=== PATIENT | female | born 1990 | race Caucasian/White ===

== ENCOUNTER → 2019-02-03 | Outpatient (CLI) | payer MEDICAID, SELFPAY ==
[2016-10-06 22:24] VITALS: BMI 27.1
[2019-02-03 17:21] LABS: Internal QC Validated? YES +Cl - CLEAR BKGD; Pregnancy, Serum, hCG Quali. NEGATIVE Negative
== END | disposition home or self-care (01) ==
LOC: WOBLAB 14:58
PROVIDERS: Visit Provider Obstetrics & Gynecology
DX: N92.5 Other specified irregular menstruation (principal)
CPT/HCPCS: 36415; 84703

== ENCOUNTER 2019-03-16 18:45 | Emergency (ER) | payer MEDICAID, SELFPAY ==
[2019-03-16 11:45] VITALS: BMI 27.1
[2019-03-16 18:46] VITALS: BP 127/78; PULSE 97; RESP 16; TEMP 37.1; O2SAT 100; BMI 22.1
[2019-03-16 19:15] VITALS: PULSE 97; TEMP 37.1
--- NOTE | 2019-03-16 19:31 | ED.VISSUMM ---
- ER Visit Summary Date of Service: 03/16/19 Chief Complaint: [Redness and swelling to the left forearm] History of Present Illness: The patient is a 28 F [the emergency department with redness and swelling to the left forearm that started 3 days ago. Patient was gardening the day before but she is not sure if she may have possibly been stung by something but following day she noticed a pimple-like lesion on her left forearm which she popped and did not think anything of it. Patient states subsequently developed increased redness and swelling and today was seen at urgent care and the physician there attempted to squeeze the lesion and ordered clindamycin for patient. Patient thinks she is about 5 weeks . Patient has noticed increased discomfort and swelling since this morning and comes in for evaluation. Patient has not started her clindamycin as of yet has not picked up her prescription. She denies any fevers.] Physical Examination: [Left forearm-patient has a soft tissue swelling measuring approximately 2 cm in diameter with a central excoriated area. Faint cellulitic changes noted surrounding it. Neurovascular intact distally.] Test Results: None indicated] Emergency Department Course and Treatment: [Incision and drainage-patient agreed to allow for attempted incision and drainage of suspected abscess. Area sterilely draped and prepped. Wound cleansed with alcohol initially and anesthetized with 1% lidocaine total of 4 cc. Using 11 blade a 1 cm incision was made into the suspected abscess and only small amount of purulent debris was expressed with blood. I used curved hemostats undermined the subcutaneous tissues. Cavity was irrigated with saline. Area of erythema was outlined with marker. She was given 1 dose of clindamycin in the emergency department.] Treatment Plan: [Be treated with clindamycin.] Disposition: [Discharged to home in stable condition. Patient advised to return if increasing pain, redness, swelling, or conditions worsen anyway.] Impression: Soft tissue abscess left forearm with incision and drainage [] This note was generated with [employer] dictation software. It may contain incorrect words, spelling, and punctuation that were not noted in review of the chart prior to signing ED Disposition - Plan for ED Patient: Referrals: Raquel Lovell MD [Primary Care Provider] -
--- NOTE | 2019-03-16 19:34 | ED.DEP ---
ED Disposition - Plan for ED Patient: Instructions: ABSCESS, Incision and Drainage Referrals: Raquel Lovell MD [Primary Care Provider] - 3-5 Days
[2019-03-16] MEDS: Clindamycin HCl 150 MG Capsule 300 MG PO (19:58)
[2019-03-16 20:01] VITALS: PULSE 81; RESP 14; O2SAT 99
--- NOTE | 2019-03-16 20:02 | ED.RN ---
THIS NURSE REVIEWED D/C INSTRUCTIONS WITH PT. PT VERBALIZED UNDERSTANDING OF INSTRUCTIONS. DRESSING APPLIED. PT DENIES FURTHER NEEDS OR QUESTIONS AT THIS TIME. PT AMBULATES FROM ROOM ON OWN WITHOUT ASSISTANCE FROM STAFF
== END 2019-03-16 20:03 | disposition home or self-care (01) ==
PROVIDERS: Emergency Provider Emergency Medicine; Family Provider Family Medicine; PCP Family Medicine
DX: L02.414 Cutaneous abscess of left upper limb (principal)
CPT/HCPCS: 10060; 99283

== ENCOUNTER → 2019-03-24 13:39 | Outpatient (CLI) | payer MEDICAID, SELFPAY ==
[2019-03-16 18:46] VITALS: BMI 22.1
[2019-03-24 18:24] LABS: Chlamydia Trachomatis by PCR Negative (Negative); Neisserai gonorrhoeae by PCR Negative (Negative); Probe Check PASS; Sample Adequacy Control PASS; Specimen Processing Control PASS
== END ==
PROVIDERS: Visit Provider Obstetrics & Gynecology
DX: Z11.3 Encounter for screening for infections with a predominantly sexual mode of transmission (principal)
CPT/HCPCS: 87491; 87591

== ENCOUNTER → 2019-04-18 11:55 | Outpatient (CLI) | payer MEDICAID, SELFPAY ==
[2019-04-18 15:56] LABS: Absolute Lymphocyte Count 1.97 X10^3/uL (0.83-4.51); Absolute Neutrophil Count 5.3 X10^3/uL (2.0-7.7); Basophil# 0.03 X10^3/uL; Basophil% 0.4 % (0-1); Eosinophil# 0.11 X10^3/uL; Eosinophils% 1.4 % (0-5); Hematocrit 38.4 % (37-47); Hemoglobin 12.2 g/dL (12.0-15.0); Lymphocyte # 1.97 X10^3/ul (4.0); Mean Corp Hgb Conc 31.8 g/dL (32-36); Mean Corpuscular Hgb 26.5 pg (27.0-32.0); Mean Corpuscular Volume 83.5 fL (81-99); Monocyte# 0.47 X10^3/uL; NRBC Flagged by Analyzer 0 % (0-5); Neutrophil # 5.29 X10^3/uL (2.7-7.7); Neutrophil % 66.9 % (47-70); Platelet Count 289 K/mm3 (150-450); RBC Distribution Width SD 51.9 fl (35.1-43.9); White Blood Count 7.9 K/mm3 (4.4-11.0)
[2019-04-18 16:06] LABS: Color, Urine Yellow (Yellow); Glucose, Dipstick Normal (Normal); Ketone-Dipstick 5 mg/dl (Negative); Leukocyte Esterase-Dipstick 100 /ul (Negative); Nitrite-Dipstick Negative (Negative); Occult Blood-Urine Negative /ul (Negative); Protein-Dipstick 15 mg/dl (Negative); Specific Gravity, Urine 1.025 (1.002-1.030); Urine Bilirubin Dipstick Negative (Negative); Urine Clarity Clear (Clear); Urine Urobilinogen Normal (Normal)
[2019-04-18 16:17] LABS: Thyroid Stim Hormone (TSH) 1.02 uIU/mL (0.358-3.74)
[2019-04-18 16:18] LABS: Amphetamine Urine VISTA NEGATIVE (<1000 ng/mL); Barbiturate Urine VISTA NEGATIVE (< 200 ng/mL); Benzodiazepine Urine VISTA NEGATIVE (< 200 ng/mL); Cocaine Urine VISTA NEGATIVE (< 300 ng/mL); Ecstacy Urine VISTA NEGATIVE (< 500 ng/mL); Methadone Urine VISTA NEGATIVE (< 300 ng/mL); PCP Urine VISTA NEGATIVE (< 25 ng/mL); THC Urine VISTA NEGATIVE (< 50 ng/mL); Vista UDS pH Range 6
[2019-04-21 15:18] LABS: HIV - WCH Non-Reactive (Nonreactive); Hepatitis B Surface Antigen Non-Reactive (Nonreactive); Hepatitis C Antibody Non-Reactive (Nonreactive); Rubella IgG 37.9 IU/mL; Vitamin D,25 Hydroxy 22.8 ng/mL (29.95-100.01)
[2019-04-24 02:58] LABS: Prenatal RPR NONREACTIVE (NONREACTIVE)
== END ==
PROVIDERS: Visit Provider Obstetrics & Gynecology
DX: Z34.81 Encounter for supervision of other normal pregnancy, first trimester (principal)
CPT/HCPCS: 36415; 80307; 81002; 82306; 84443; 85025; 86703; 86762; 86803; 87340

== ENCOUNTER → 2019-08-15 11:21 | Outpatient (CLI) | payer MEDICAID, SELFPAY ==
[2019-08-15 16:09] LABS: Hematocrit 28.5 % (37-47); Hemoglobin 8.5 g/dL (12.0-15.0); Mean Corp Hgb Conc 29.8 g/dL (32-36); Mean Corpuscular Hgb 24.4 pg (27.0-32.0); Mean Corpuscular Volume 81.9 fL (81-99); Mean Platelet Vol. 11.7 fl (6.2-12.0); Platelet Count 253 K/mm3 (150-450); RBC Distribution Width CV 13.7 % (11.6-14.6); RBC Distribution Width SD 40.8 fl (35.1-43.9); Red Blood Count 3.48 M/mm3 (4.2-5.4); White Blood Count 9.5 K/mm3 (4.4-11.0)
[2019-08-15 16:27] LABS: Glucose Challenge Gest 1H 50g 106 mg/dL (70-140)
[2019-08-15 16:59] LABS: Vitamin D,25 Hydroxy 32.5 ng/mL (29.95-100.01)
== END ==
PROVIDERS: Visit Provider Obstetrics & Gynecology
DX: Z34.83 Encounter for supervision of other normal pregnancy, third trimester (principal); E55.9 Vitamin D deficiency, unspecified
CPT/HCPCS: 36415; 82306; 82950; 85027

== ENCOUNTER → 2019-09-19 10:35 | Outpatient (CLI) | payer MEDICAID, SELFPAY ==
[2019-09-19 13:42] LABS: Hematocrit 35.4 % (37-47); Hemoglobin 10.9 g/dL (12.0-15.0); Mean Corp Hgb Conc 30.8 g/dL (32-36); Mean Corpuscular Hgb 26.4 pg (27.0-32.0); Mean Corpuscular Volume 85.7 fL (81-99); Mean Platelet Vol. 10.5 fl (6.2-12.0); POSITIVE MORPHOLOGY YES; Platelet Count 204 K/mm3 (150-450); RBC Distribution Width CV 21.2 % (11.6-14.6); RBC Distribution Width SD 64.2 fl (35.1-43.9); Red Blood Count 4.13 M/mm3 (4.2-5.4); White Blood Count 9.3 K/mm3 (4.4-11.0)
[2019-09-19 13:50] LABS: Scan Indicated on CBC? Y/N YES- FLAGS NOTED
== END ==
PROVIDERS: Visit Provider Obstetrics & Gynecology
DX: O99.013 Anemia complicating pregnancy, third trimester (principal); D50.9 Iron deficiency anemia, unspecified; Z3A.00 Weeks of gestation of pregnancy not specified
CPT/HCPCS: 36415; 85027

== ENCOUNTER → 2019-10-17 | Outpatient (CLI) | payer MEDICAID, SELFPAY | END | disposition home or self-care (01) | LOC: LABSPEC 14:42 | PROVIDERS: Referring Provider Obstetrics & Gynecology; Visit Provider Obstetrics & Gynecology | DX: Z36.85 Encounter for antenatal screening for Streptococcus B (principal) | CPT/HCPCS: 87081 ==

== ENCOUNTER → 2019-10-23 | Outpatient (CLI) | payer MEDICAID, SELFPAY ==
[2019-10-23 12:09] LABS: ROM Internal Control Test YES-OK TO RESULT pt. (Internal QC); ROM Patient Test Negative (Negative)
== END | disposition home or self-care (01) ==
PROVIDERS: Obstetrics & Gynecology; Visit Provider Obstetrics & Gynecology
DX: Z34.83 Encounter for supervision of other normal pregnancy, third trimester (principal)
CPT/HCPCS: 84112

== ENCOUNTER 2019-11-13 18:50 | Inpatient (IN) | payer MEDICAID, SELFPAY ==
[2019-11-13 19:14] VITALS: PULSE 82; O2SAT 96
[2019-11-13 19:15] VITALS: BP 118/72; PULSE 84; TEMP 37; O2SAT 97
[2019-11-13] MEDS: Lactated Ringers 1,000 ML 50 ML IV (19:45)
[2019-11-13 19:46] VITALS: BMI 27.6
[2019-11-13] MEDS: 0.9% Saline Lock 10 ML Syringe IV (20:08)
[2019-11-13 20:13] LABS: Absolute Lymphocyte Count 2.62 X10^3/uL (0.83-4.51); Absolute Neutrophil Count 8.3 X10^3/uL (2.0-7.7); Basophil# 0.02 X10^3/uL; Basophil% 0.2 % (0-1); Eosinophil# 0.14 X10^3/uL; Eosinophils% 1.2 % (0-5); Hematocrit 36.6 % (37-47); Hemoglobin 11.9 g/dL (12.0-15.0); Lymphocyte # 2.62 X10^3/ul (4.0); Lymphocyte % 21.7 % (19-41); Mean Corp Hgb Conc 32.5 g/dL (32-36); Mean Corpuscular Hgb 28.6 pg (27.0-32.0); Mean Platelet Vol. 10.6 fl (6.2-12.0); Monocyte# 0.94 X10^3/uL; Monocyte% 7.8 % (0-10); NRBC Flagged by Analyzer 0 % (0-5); Neutrophil # 8.34 X10^3/uL (2.7-7.7); Neutrophil % 68.8 % (47-70); Platelet Count 183 K/mm3 (150-450); RBC Distribution Width CV 17.7 % (11.6-14.6); RBC Distribution Width SD 57.4 fl (35.1-43.9); Red Blood Count 4.16 M/mm3 (4.2-5.4); White Blood Count 12.1 K/mm3 (4.4-11.0)
[2019-11-13] MEDS: miSOPROStol 25 MCG TABLET VAGINAL (20:25)
--- NOTE | 2019-11-13 20:39 | PCM.HPOB.BLA ---
- Problem List (1) 40 weeks gestation of Status: Acute History and Physical Date of Admission: 11/13/19 ACOG ANTEPARTUM RECORD - HISTORY AND PHYSICAL (11/13/2019) Name: JAMILA LIGHT OB Physician: MENDEL Scobey's Physician: DR. FABIAN MCMILLAN ...................................................................... : 1990 Age: 29 Address: [address] [place] [address] Phone: [phone] Insurance Carrier: [facility] [id number] Emergency Contact: STELLA LIGHT/MOTHER [phone] ...................................................................... Final BABS: 11/07/19 By Ultrasound: 9 weeks 2 days PARITY: (G-Total Pregnancies P-Fullterm,Premature,Induced AB,Spont AB, Ectopics, Multiple,Living) BABS CONFIRMATION: By LMP: 01/31/19 Initial Exam: 11/07/19 By First Ultrasound Exam: 11/07/19 Final BABS: 11/07/19 OB PROBLEM LIST: Celiac disease Declines AFP and CF testing EPDS = 0 Father is of [place] - no hx of a-thalassemia Pt's mother's family is Kinyarwanda, no hx of b-thalassemia ALLERGIES: Gluten foods Gi upset - celiac's disease No Known Drug Allergies MEDICATIONS: ferrous sulfate 325 mg (65 mg iron) tablet 1 tab po tid 28 mg-800 mcg tablet 1 PO QD Supplement (s) [No Strength] Vitamin D3 4,000 unit capsule 1 PO QD SOCIAL HISTORY: Smoking - used to smoke but quit and quit December 2015 Alcohol Use - denies drinking Diet - watch gluten Lifestyle - moderate stress lifestyle and single Exercise - active Employer - [employer] Job Description - [place] Illicit Drug Use - denies use of street drugs Sexual Activity - single sexual partner and multiple in past Residence - with [place] Place of - [place], [place] Hours Worked - 30 hrs/week Spouse-Sig Other Name - Stan Ender Spouse-Sig Other Occupation - unemp - grad school - [employer] for pharmacy Spouse-Sig Other Phone No - [phone] cell Children Name(s) - Colby Pereira 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 + + 126/62 0 142 - - 13 Sep SHM 2 32 V + + 100/70 0 136 tr - 21 Aug 30 JMW 3 30 + + 124/64 sl 134 - - 07 Sep 05 SHM 2 28 ? + ++ 100/64 0 131 ne ne Jul 31 SHM 4 23 + + 100/60 0 128 - - 06 Jun 26 SHM 4 19 + 110/62 0 124 tr - 08 May 23 SHM 4 on O 110/70 0 121 - - 11 Apr 18 SHM 4 + US 94/62 0 117 tr - ANTEPARTUM NOTE(S): Nov 07 2019: considering induction Oct 29 2019: doing well, reviewed FM, SROM, and labor Oct 22 2020: Oct 16 2020: Sep 18 2020: some soreness noted Aug 29 2019: Feeling Well, FM Noted per KK Regimen Aug 15 2020: glucola drawn today Jul 15 2020: see note Jun 13 2019: Comp u/s today, had Influenza vaccine May 16 2019: feeling well. Rash on chest and back. Apr 18 2019: feeling well. COMPREHENSIVE ANTEPARTUM NOTE(S): Nov 07 2019: Reviewed FM, SROM, and labor. Agreeable to schedule induction at 41 weeks. Nov 07 2019: IOL for Th, 11/13/19 at 7pm, [facility]. Oct 29 2019: Reviewed IOL indications. Declines elective 39w IOL 2/2 COVID, however concerned about large baby if goes overdue. Reviewed weight gain approx 1lb q2 weeks. Expectant management. FM precautions reviewed. Oct 29 2019: H taken to OB. tkg Oct 23 2019: (m,m*) Here for routine PNV after calling in stating she thinks she might be ruptured. On assessment external vagina dry, but internal very moist. Ferning not seen under microscope. ROM+ performed and wishes to proceed. Will go to her mothers until test is back. Reports +FM. FHR 132. Reviewed negative GBS. Lower pelvic pressure, but understands with head low and being close to due date that this is common. Comfort measures discussed. Will return in 1 week for PNV. - CH Oct 17 2019: Jamila taking iron supplement 2-3 x per day, Vit D 4000 IU daily. Good FM. Reports low BP @ home yesterday 78/45, 93/40-50's, rested and then 102/60. 126/62 at this visit. LARC completed, declines. GBS today. kb Oct 17 2019: GBS obtained. Discussed COVID related precautions. Her michelle is doing school from home and Melania is at home. Reports feeling run down the other day and BPs low. Denies tachycardia. Has mild SOB with increased activity, tolerates stairs, occasionally needs to rest on the days when she is up and down the stairs. She generally runs 100s/60s at home. Denies chest pain, cough, swelling. Discussed hydration, salt intake. Sep 19 2019: Melania is here for visit. She relates some muscle soreness and discomfort. Also notes a little leaking with cough or sneeze. Encouraged her to continue kegels. Reviewed FM and PTL. Tdap encouraged. LMT Sep 19 2019: hx iron def, energy improved. Rpt CBC today. Aug 15 2019: Audible decel - ? variable. NST Cat I-II - AGA with variables noted initally, then resolved. FM precautions, PTL, ROM precautions reviewed. Work note provided - 8h work days only. Advised maternity belt for additional support. Aug 15 2019: NST reassuring and Melania advised to call if decreased mvmt or other issue. Confirmed this with SHM and called Melania to let her know she was agreeable to this plan. LMT Aug 15 2019: Jamila is here as a work in visit for evaluation of possible SROM. Reports intermittent watery vaginal discharge for the past week. Also reporting intermittent cramping throughout the day, no spotting. Good FM. Long dip urine showing: sp gr 1.005, ph 8, trace protein, large leuks, rest is negative. kbm Jul 15 2019: Melania is being seen for PNV. Pt complains of some nausea, sweaty upper lip and just overall not feeling well when she wore pantyhose like pants up over her belly to work. She took them down from over her belly when she took a slight break at work and had a glass of water that calmed her down. She also states about having one day during the week where she overall just did not feel well, discussed sugar intake, pt states she drinks 1-2 coffees a day depending if she works or not. She wants to discuss possibly decreasing hours at work, going to 3 days a week due to being very tired and working lots of hours during holidays. Glucola given. AM Jun 13 2019: Nausea resolving. Discussed FM, discomforts of . Anatomy scan wnl, ANTERIOR placenta, ok for . MALE - reveal tonight. Rash resolved, unknown metal. May 16 2019: Remove necklace x 2 weeks for rash in neckline area. Declines Quad screen, msAFP. Discussed FM. Apr 20 2019: A positive Hgb 12.2 g/dl. Tox screen NEG. EB Apr 18 2019: Jamila is here for her NOB visit at 11 w 0 d, she is a with an BABS of 11/07/2019. Fiance'/FOB, Stan Handley, accompanies her today. They have a two year old son, Colby, at home. Bud seems to be very supportive and interested. Colby was born at [facility], Jamila states that she pushed 2+ hours before he was delivered. Past history updated. She plans delivery at [facility] with an epidural, and she will breastfeed. Jamila is an established pt and is familiar with office practice patterns, including labs that will be collected today. Emergencies/danger signs to report, round ligament pain, reporting suspected UTI, and common OTC medications approved/not approved for use during reviewed. She states that she quit smoking in 2016, and avoids second hand smoke as much as possible. She denies use of drugs or ETOH. She takes an OTC vitamin with a DHA supplement and states that she tolerates this well. She states that she possibly has Celiac Disease, but has not had definitive testing; she tires to maintain a gluten free diet. Genetic Screening form completed. AFP and CF testing declined, consent signed as such. Jamila denies a history of depression/anxiety; EPDS today = 0. She has been nauseated with this , but has not vomited, and she feels that the nausea is beginning to resolve. Encouarged small frequent meals with protein included throughout the day, and adequate water hydration of at least one gallon per 24 hours. Also reviewed caloric needs, recommended weight gain, limiting empty calories, and limiting caffeine to one serving a day. Printed guide for food safety provided with review. Jamila has a regular exercise routine, and does yoga. Advised no hot yoga, as there are concerns about room temperature, and potential dehydration. Kegel exercises, and lifting restrictions reviewed. She has no questions following NOB visit, and expresses that she understands all information provided during NOB visit. AW New Mar 24 2019: Jamila is here today for missed menses appointment. Patient is a . Positive upt in office today. Patient states that lmp is 01/31/2019 making patient 7-8 wks with Babs of 11/2019. Patient states that she has had no bleeding or spotting since lmp. Patient states that she has nausea but at this time is tolerable. Patient has tried prego pops but was getting toothaches due to to much sugar. Advised patient she could try vitamin B6 and Unisom for the nausea. Patient states that she has h/o abnormal pap's with most recent pap having been in 2018 and was WNL. Patient is not due for pap today patient is due for Gc/Ct cultures. Patient given educational material and reviewed with her. Patient denies any other questions or concerns at this time. jlb Nov 18 2018: Jamila presents here today with concerns regarding she thought she may have a Bartholin Cyst last week, and much improved now. 28 y.o G 1 P 1 previous smoker(quit in 2016) with history of regular menses and LMP of 11-05-18 lasting her average of 3-4 days. Reports last week she developed a tender/sore area on her lower Vulva area, and that area has improved a lot since that time and is no longer sore. Medication list up-dated with No Meds. ROYCE November 18 2019: ok REVIEW OF SYSTEMS: GENERAL - Denies fever, or chills SKIN - Denies rash, new skin lesions, or change in moles EYES - Denies blurred vision, or change in visual acuity EARS - Denies ear pain, or difficulty hearing NOSE - Denies nasal congestion, discharge, or bleeding MOUTH - Denies sore throat, or difficulty swallowing NECK - Denies pain or swelling RESPIRATORY - Denies shortness of breath, cough, wheezing CARDIOVASCULAR - Denies palpitations, chest pain, orthopnea, PND, peripheral edema, syncope or claudication GASTROINTESTINAL - Denies nausea, vomiting, diarrhea, constipation, Denies abdominal pain, melena and or bright red blood GENITOURINARY - Denies dysuria, frequency of urination, urgency, or hesitancy MUSCULOSKELETAL - Denies joint or muscle pain, or back pain NEUROLOGICAL - Denies localized numbness, weakness, or tingling PSYCHIATRIC - Denies depression, anxiety, substance abuse or suicide attempts ENDOCRINE - Denies heat or cold intolerance, weight loss or gain, increasing thirst HEMATO-IMMUNOLOGIC - Denies easy bruising, bleeding, oral ulcerations or recurrent infections GENETICS SCREENING: Age 35+ years: No Thalassemia: No Neural Tube Defect: No Down Syndrome: No ALANA-SACHS: No Sickle Cell Disease: No Hemophilia: No Musc. Dystrophy: No Cystic Fibrosis: No-declines screening Sera Chorea: No Mental Retardation: No Fragile X: No Other genetic: No Other defects: No SABs/still births: No Drugs since LMP: No INFECTION HISTORY: High risk AIDS: No High risk Hepatitis: No Exposed to TB: No Exposed to Herpes: No Rash/viral illness since LMP: No History of STD: No MENSTRUAL HISTORY: *Menses Amount/Duration: 3-4 daysMenses Regularity: RegularFrequency: monthlyMenarche (Age Onset): 10* PAST SUMMARY: PARITY: 1. Total Pregnancies............ 2 2. Full Term Pregnancies........ 1 3. Premature.................... 0 4. Abortions - Induced.......... 0 5. Abortions - Spontaneous...... 0 6. Ectopics..................... 0 7. Multiple Births.............. 0 8. Living Children.............. 1 PAST #1: Date of :.................. 10/07/16 Gestation Weeks:................ 40 Length of labor(hours):......... 24 Sex:............................ M Weight-lbs:............... 6 Weight-oz:................ 8 Type of Delivery:............... Vag Type of Anesthesia:............. Epidural Place of Delivery:.............. [facility] Treatment of Labor?:.... No Comment: 2+ HRS 2ND STAGE PHYSICAL EXAMINATION General Appearence: 29 yo female in no acute distress Vital Signs: AF, VSS Heart: RRR without rubs or gallops Lungs: CTA x 2 Breasts: deferred Abdomen: gravid Pelvis: Cervix: closed/30/high Presentation: cephalic Station: high Fetus: Size: AGA Movement: present Heart: present Impression /Plan: Intrauterine . Preparations in progress for delivery. Cytotec induction
[2019-11-14] VITALS (78 sets, daily range): BP systolic 87–151; BP diastolic 50–101; PULSE 19–120; RESP 16; TEMP 36.1–37.4; O2SAT 77–99
[2019-11-14] MEDS: miSOPROStol 50 MCG TABLET VAGINAL (00:19)
[2019-11-14] MEDS: Lactated Ringers 500 ML 999 ML IV ×3 (03:14→07:01)
[2019-11-14] MEDS: fentaNYL-bupivacaine (epidural) 100 ML BAG EPIDURAL (04:02)
[2019-11-14] MEDS: Oxytocin 30 units/NS 500 ml 30 UNITS/500 ML IV.SOLN 334 UNITS IV (05:51)
--- NOTE | 2019-11-14 06:42 | PCM.OPRPT ---
Problem List (1) 40 weeks gestation of Status: Acute Vaginal Delivery Maternal Presentation: Elective Induction Cytotec induction Method of Induction: Cytotec Amniotic Membrane Rupture Type: Spontaneous Amniotic Fluid Description: Clear Final BABS: 11/07/19 Final BABS Source: US <20 weeks Gestational age: 41 Weeks and 0 Days Date of Procedure: 11/14/19 Pre-Operative Diagnosis: IOL Post-Operative Diagnosis: S/P , 3rd degree laceration Surgery/ Procedure Performed: Spontaneous Vaginal Delivery Anesthesiologist: Mariela Trujillo Type of Anesthesia: Epidural Description of Procedure: Patient had spontaneous urge to push and /+1. Upon writers arrival to room /+2. Patient pushed well to deliver head in OA to EILEEN followed spontaneously by body. The male infant was placed on the maternal abdomen and further attended by nursery personnel with bulb suction and stimulation. The cord was doubly clamped then cut by FOB under CNM supervision at approximately 4 minutes of life. IV Pitocin started per protocol. With gentle cord traction spontaneous delivery of placenta. Fundal massage given, noted to be firm and midline. Third degree perineal laceration noted and repaired with a 3.0 rapide double under epidural anesthesia by attending Dr. Torres. Good hemostasis noted. EBL 350. Sponge and needle count correct x2. Apgars 8/9. Presentation: Vertex, EILEEN Placental Delivery Description: Spontaneous Placenta Disposition: [facility] Cord Vessel Description: 3 Vessels Cord Entanglement: Around neck x 1, loose Drain: Seo to straight drain Estimated Blood Loss: 350 A gender: Male (1 minute): 8 (5 minute): 9 Episiotomy Description: None Laceration: Perineal Extension/lac, 3rd degree Medications given after delivery: IV Pitocin
[2019-11-14] MEDS: Methylergonovine 0.2 MG/ML Ampul IM (07:04)
--- NOTE | 2019-11-14 07:22 | RAD_ITS ---
HISTORY: incorrect needle count ADDITIONAL HISTORY: None. COMPARISON: None Technique: Supine abdominal radiograph(s) Number of images including paperwork: 1 FINDINGS: FREE AIR: None detected. BOWEL GAS PATTERN: Nonobstructive. CALCIFICATIONS: No definite urinary tract calculi. ORGANS: No evidence of organomegaly. SOFT TISSUES: Unremarkable. BONES: No acute skeletal findings. RAD/Abdomen Single View IMPRESSION: No definite surgical foreign body is radiographically apparent. at 0743 Reported and signed by: Vivienne Montalvo MD Electronically Signed: Vivienne Montalvo MD at 7:42 EDT Tel , Service support ,
--- NOTE | 2019-11-14 07:56 | NURSING ---
5th suture needle accounted for in needle lewis box. No further action taken. [place] updated.
[2019-11-14] MEDS: Ibuprofen 600 MG Tablet PO ×2 (08:33→18:16)
[2019-11-14] MEDS: 0.9% Saline Lock 10 ML Syringe IV ×3 (08:50→11:03)
[2019-11-14] MEDS: Cefazolin 2 GM in 0.9% Normal Saline 100 ML IV (10:02)
--- NOTE | 2019-11-14 13:46 | NURSING ---
Patient reports feeling able to ambulate. Seo removed. Patient ambulated to bathroom with assistance. Denies difficulty.
[2019-11-14] MEDS: Acetaminophen 500 MG Tablet 1000 MG PO (15:23)
[2019-11-15] VITALS: BP 99/51; PULSE 85; RESP 16; TEMP 36.4
[2019-11-15] MEDS: Ibuprofen 600 MG Tablet PO ×2 (02:26→12:36)
[2019-11-15 03:40] VITALS: BP 98/44; PULSE 75; RESP 16; TEMP 36.3
[2019-11-15 05:09] LABS: Hematocrit 31.4 % (37-47); Hemoglobin 10.3 g/dL (12.0-15.0); Mean Corp Hgb Conc 32.8 g/dL (32-36); Mean Corpuscular Hgb 29.1 pg (27.0-32.0); Mean Corpuscular Volume 88.7 fL (81-99); Mean Platelet Vol. 10.3 fl (6.2-12.0); Platelet Count 154 K/mm3 (150-450); RBC Distribution Width CV 17.8 % (11.6-14.6); RBC Distribution Width SD 58.4 fl (35.1-43.9); Red Blood Count 3.54 M/mm3 (4.2-5.4); White Blood Count 11.8 K/mm3 (4.4-11.0)
--- NOTE | 2019-11-15 08:09 | DCINST_ITS ---
Discharge Diet: No Restrictions Discharge Activity: Return to Normal Activity, May not drive while taking narcotic pain medications., May Shower May resume sexual activity in: 4-6 weeks Additional Activity Instructions:: Nothing in the vagina for 4-6 weeks. You may return to work/school in 6 weeks. Call your doctor if your incision/area has: Continuous Slow Oozing, Sudden Increased Bleeding, Increased Pain/ Swelling, Increased Redness, Foul Smelling Discharge Additional Instructions: If you experience any of the following, contact your healthcare provider. * Bleeding that soaks a pad every hour for 2 hours * Fever 100.4 or higher * Unrelieved incision or abdominal pain * Swelling, redness, discharge or bleeding from your incision or episiotomy site * Your incision begins to separate * Problems urinating (including inability to urinate or burning while urinating). * Visual changes * Severe headache * Flu-like symptoms * Pain or redness in one of both of your breasts * Pain, warmth, tenderness or swelling in your legs, especially the calf area * Frequent nausea and vomiting * Symptoms of depression or anxiety If you experience any of the following, call 911 or go to the nearest Emergency Room. * Chest pain * Problems breathing * Seizure activity * Partial or complete paralysis of a body part, slurred speech, weakness or drooping of the face, or a sudden inability to walk or hold your balance Allergies/Adverse Reactions: Allergies gluten Allergy (Verified 11/13/19 21:23) Upset Stomach Medications to take at Discharge Cholecalciferol (Vitamin D3) [Vitamin D3] 2,000 unit PO DAILY 11/13/19 Ferrous Sulfate [Iron] 325 mg PO TID 11/13/19 Please Follow Up With: Pastora Starr MD When: Call to make an appointment with your doctor in 6 weeks. Primary Care Physician: Raquel Lovell MD [Primary Care Provider] - Test Results: Test results from this visit will be discussed in further detail at your follow- up appointment, if applicable.
--- NOTE | 2019-11-15 08:10 | PCM.PN.OB ---
Patient Problems: Active and Suspected Problems (Last Updated 03/16/19 @ 11:35 by Saima Larson) 40 weeks gestation of (Acute) Subjective: Feeling really good, a lot better than after her first delivery. Denies heavy bleeding or uncontrolled pain. Some cramping and has laceration pain, but the Tucks, Dermoplast and ice are really helping a lot. Is without difficulty, but he is just getting the hang of it. Passing flatus. May want to leave today or tomorrow. Wants to go with the flow at their own pace. Objective: VSS. Fundus firm, midline, u/2. Lochia rubra scant. Up in the bathroom upon arrival. - Physical Exam Vitals/I&O's: Vital Signs Temp Pulse Resp BP Pulse Ox 97.4 F L 75 16 98/44 L 96 11/15/19 03:40 11/15/19 03:40 11/15/19 03:40 11/15/19 03:40 11/14/19 13:34 Oxygen Delivery Method Room Air Weight: 66.224 kg Body Mass Index (BMI) 27.6 Intake and Output for Last 24 Hours 11/13/19 11/14/19 11/15/19 23:59 23:59 23:59 Intake Total .. 2680.00 / 2680.00 Output Total 2800 / 3200 400 / 400 Balance . / . -120.00 / -520.00 -400 / -400 General: Alert, Oriented x3, Cooperative HEENT: Atraumatic, PERRLA, EOMI, Normocephalic Neck: Supple, No JVD, Negative Carotid Bruits Lungs: Clear to auscultation, Normal air movement Cardiovascular: Regular rate, No murmurs Abdomen: Bowel Sounds Present, Soft, Non Tender Extremities: No edema, Capillary Refill Less than 3 Seconds Skin: No rashes, No breakdown Musculoskeletal: No Tenderness to Palpation of Joints or Extremities Neurological: Cranial nerves II-XII grossly intact Psych/Mental Status: Normal Affect, Appropriate Laboratory Results 11/15/19 05:04: WBC 11.8 H, RBC 3.54 L, Hgb 10.3 L, Hct 31.4 L, MCV 88.7, MCH 29.1, MCHC 32.8, RDW Std Deviation 58.4 H, RDW Coeff of Melvin 17.8 H, Plt Count 154, MPV 10.3 Current Medications Acetaminophen (Tylenol) 1,000 mg PO Q8H PRN PRN PRN Reason: Pain Score 1-3/10 Last Admin: 11/14/19 15:23 Dose: 1,000 mg Documented by: Bisacodyl (Dulcolax) 10 mg RECTAL UD PRN PRN Reason: If no BM Hydrocortisone (Hytone) 1 applic TOPICAL TID PRN PRN; Protocol PRN Reason: Discomfort Ibuprofen (Motrin) 600 mg PO Q6H PRN PRN PRN Reason: Pain Score 1-3/10 Last Admin: 11/15/19 02:26 Dose: 600 mg Documented by: Methylergonovine Maleate (Methergine) 0.2 mg IM X1 PRN PRN Reason: Excess bleeding/uterine atony Last Admin: 11/14/19 07:04 Dose: 0.2 mg Documented by: Ondansetron HCl (Zofran) 4 mg IV Q4H PRN PRN PRN Reason: Nausea Oxycodone HCl (Oxyir) 5 - 10 mg PO Q4H PRN PRN PRN Reason: Pain Score 4-10/10 Senna/Docusate Sodium (Senokot-S, Richelle-Colace) 1 - 2 tablet PO DAILY PRN PRN PRN Reason: Constipation Simethicone (Mylicon) 80 mg PO PCHS PRN PRN Reason: Indigestion/Stomach pain Sodium Chloride () 5 - 15 ml IV UD PRN PRN Reason: SALINE FLUSH Last Admin: 11/14/19 11:03 Dose: 10 ml Documented by: Throat Lozenges (Dermoplast (Sp)) 1 applic TOPICAL 4X/DAY PRN PRN; Protocol PRN Reason: Pain/Inflammation Last Admin: 11/14/19 11:03 Dose: 1 applic Documented by: Medical Necessity - Tobacco Use Smoking Status: Former smoker Assessment/Plan All Active Problems (Last Updated 03/16/19 @ 11:35 by Saima Larson) 40 weeks gestation of (Acute) A/P: S/P day #1 son Normal course and involution Laceration pain well controlled with current orders May want to discharge today or tomorrow Already has 6 week follow up scheduled with Dr. Starr
[2019-11-15 10:00] VITALS: BP 106/66; PULSE 84; RESP 12; TEMP 36.5
[2019-11-15] MEDS: Senna/Docusate Sodium 1 Tablet PO (11:38)
[2019-11-15 16:15] VITALS: BP 104/63; PULSE 80; RESP 12; TEMP 36.8
--- NOTE | 2019-11-15 17:30 | NURSING ---
1615 Pt states she wants to go home today and feels able to care for herself and her baby. To car via wheelchair with infant in her lap in a car seat. Kaiden well.
== END 2019-11-15 16:15 | disposition home or self-care (01) | DRG 542 ==
PROVIDERS: Admitting Provider Obstetrics & Gynecology; PCP Family Medicine; Referring Provider Obstetrics & Gynecology; Visit Provider Obstetrics & Gynecology
DX: O69.81X0 Labor and delivery complicated by cord around neck, without compression, not applicable or unspecified (principal); O70.20 Third degree perineal laceration during delivery, unspecified; Z37.0 Single live birth; O72.2 Delayed and secondary postpartum hemorrhage; Z3A.41 41 weeks gestation of pregnancy; Z87.891 Personal history of nicotine dependence
CPT/HCPCS: 59050; 74018; 76815; 85025; 85027; 86850; 86900; 86901; 99218; J7120; A4216; G0378

== ENCOUNTER → 2019-12-26 15:38 | Outpatient (CLI) | payer MEDICAID, SELFPAY ==
[2020-01-02 00:47] LABS: HPV APTIMA, High Risk Negative (Negative)
== END ==
PROVIDERS: PCP Family Medicine; Referring Provider Obstetrics & Gynecology; Visit Provider Obstetrics & Gynecology
DX: Z12.4 Encounter for screening for malignant neoplasm of cervix (principal)
CPT/HCPCS: 87624; 88175; G0145

== ENCOUNTER 2021-07-12 08:56 | Outpatient (CLI) | payer MEDICAID, SELFPAY ==
[2021-07-12 12:36] LABS: Absolute Lymphocyte Count 1.86 X10^3/uL (0.83-4.51); Absolute Neutrophil Count 4.5 X10^3/uL (2.0-7.7); Basophil# 0.03 X10^3/uL; Basophil% 0.4 % (0-1); Eosinophil# 0.15 X10^3/uL; Eosinophils% 2.1 % (0-5); Hematocrit 37.8 % (37-47); Hemoglobin 12.1 g/dL (12.0-15.0); Lymphocyte # 1.86 X10^3/ul (0.83-4.51); Lymphocyte % 26.6 % (19-41); Mean Corpuscular Hgb 28.1 pg (27.0-32.0); Mean Corpuscular Volume 87.9 fL (81-99); Mean Platelet Vol. 10.9 fl (6.2-12.0); Monocyte# 0.45 X10^3/uL; Monocyte% 6.4 % (0-10); NRBC Flagged by Analyzer 0 % (0-5); Neutrophil # 4.47 X10^3/uL (2.7-7.7); Neutrophil % 64.2 % (47-70); Platelet Count 309 K/mm3 (150-450); RBC Distribution Width CV 12.9 % (11.6-14.6); RBC Distribution Width SD 41.7 fl (35.1-43.9)
[2021-07-12 12:46] LABS: AST(SGOT) 12 U/L (15-37); Alanine Aminotransfer ALT/SGPT 15 U/L (13-56); Albumin, Serum 3.8 g/dL (3.2-5.0); Alkaline Phosphatase 68 U/L (45-117); Anion Gap 8 (5-15); BUN 10 mg/dL (7-18); BUN/Creat Ratio 16.3 RATIO (10-20); Calcium,Total 9.1 mg/dL (8.5-10.1); Chloride 103 mmol/L (98-107); Cholesterol 253 mg/dL (200); Creatinine, Serum 0.61 mg/dL (0.55-1.02); EST Glomerular Filtration Rate 119 mL/min (>60); Est Glom Filt Rate - Afr Amer 144 mL/min (>60); Globulin 3.8 g/dL (2.2-4.2); Glucose 98 mg/dL (74-106); High Density Lipoprotein 48 mg/dL; Potassium 3.8 mmol/L (3.5-5.1); Protein, Total 7.6 g/dL (6.4-8.2); Sodium Level 139 mmol/L (136-145); Triglycerides 95 mg/dL; Very Low Density Lipoprotein 19 mg/dL (5-40)
== END 2021-07-12 23:59 | disposition short-term general hospital (02) ==
LOC: BIMLAB 08:57
PROVIDERS: PCP Family Medicine; Visit Provider Internal Medicine
DX: Z00.00 Encounter for general adult medical examination without abnormal findings (principal)
CPT/HCPCS: 36415; 80053; 80061; 85025

== ENCOUNTER → 2021-10-28 | Outpatient (CLI) | payer MEDICAID, SELFPAY ==
--- NOTE | 2021-10-28 09:01 | EKG12_ITS ---
Test Reason : ROUTINE Blood Pressure : / mmHG Vent. Rate : 075 BPM Atrial Rate : 075 BPM P-R Int : 130 ms QRS Dur : 080 ms QT Int : 366 ms P-R-T Axes : 068 069 058 degrees QTc Int : 408 ms Normal sinus rhythm with sinus arrhythmia Normal ECG Confirmed by NEIDA PATTON, MELANIE ([id number]), staff editor LINDSEY XAVIER ([id number]) on 10/31/2021 11:35:39 AM Referred By: Trent Murray Confirmed By:MELANIE CARRASQUILLO MD
[2021-10-28 12:50] LABS: Cholesterol 247 mg/dL (200); High Density Lipoprotein 54 mg/dL; Triglycerides 53 mg/dL; Very Low Density Lipoprotein 11 mg/dL (5-40)
== END | disposition home or self-care (01) ==
PROVIDERS: PCP Internal Medicine; Referring Provider Internal Medicine; Visit Provider Internal Medicine
DX: Z00.00 Encounter for general adult medical examination without abnormal findings (principal); E78.5 Hyperlipidemia, unspecified
CPT/HCPCS: 36415; 80061; 93005

== ENCOUNTER → 2022-09-15 | Outpatient (CLI) | payer MEDICAID, SELFPAY ==
[2022-09-15 15:05] LABS: Absolute Lymphocyte Count 2.12 X10^3/uL (0.83-4.51); Absolute Neutrophil Count 2.3 X10^3/uL (2.0-7.7); Basophil# 0.03 X10^3/uL; Basophil% 0.6 % (0-1); Eosinophil# 0.17 X10^3/uL; Eosinophils% 3.4 % (0-5); Hematocrit 37.9 % (37-47); Hemoglobin 12.1 g/dL (12.0-15.0); Lymphocyte # 2.12 X10^3/ul (0.83-4.51); Lymphocyte % 42.1 % (19-41); Mean Corp Hgb Conc 31.9 g/dL (32-36); Mean Corpuscular Hgb 28.1 pg (27.0-32.0); Mean Corpuscular Volume 87.9 fL (81-99); Mean Platelet Vol. 11.1 fl (6.2-12.0); Monocyte# 0.41 X10^3/uL; Monocyte% 8.1 % (0-10); NRBC Flagged by Analyzer 0 % (0-5); Neutrophil % 45.6 % (47-70); Platelet Count 302 K/mm3 (150-450); RBC Distribution Width CV 13.2 % (11.6-14.6); RBC Distribution Width SD 42.3 fl (35.1-43.9); Red Blood Count 4.31 M/mm3 (4.2-5.4)
[2022-09-15 15:23] LABS: ALB/GLOB Ratio 1.2 RATIO (0.9-2.4); AST(SGOT) 15 U/L (15-37); Alanine Aminotransfer ALT/SGPT 23 U/L (13-56); Albumin, Serum 4.1 g/dL (3.2-5.0); Alkaline Phosphatase 60 U/L (45-117); Anion Gap 6 (5-15); BUN 11 mg/dL (7-18); BUN/Creat Ratio 17.5 RATIO (10-20); Chloride 104 mmol/L (98-107); Cholesterol 263 mg/dL (200); Creatinine, Serum 0.63 mg/dL (0.55-1.02); EST Glomerular Filtration Rate 115 mL/min (>60); Est Glom Filt Rate - Afr Amer 140 mL/min (>60); Globulin 3.4 g/dL (2.2-4.2); Glucose 87 mg/dL (74-106); High Density Lipoprotein 62 mg/dL; Potassium 4.2 mmol/L (3.5-5.1); Protein, Total 7.5 g/dL (6.4-8.2); Sodium Level 138 mmol/L (136-145); Triglycerides 75 mg/dL; Very Low Density Lipoprotein 15 mg/dL (5-40)
== END | disposition home or self-care (01) ==
LOC: BIMLAB 13:38
PROVIDERS: PCP Internal Medicine; Referring Provider Internal Medicine; Visit Provider Internal Medicine
DX: Z00.00 Encounter for general adult medical examination without abnormal findings (principal)
CPT/HCPCS: 36415; 80053; 80061; 85025

== ENCOUNTER → 2022-12-12 | Outpatient (CLI) | payer MEDICAID, SELFPAY ==
[2022-12-12 13:10] LABS: ALB/GLOB Ratio 1.2 RATIO (0.9-2.4); AST(SGOT) 22 U/L (15-37); Alanine Aminotransfer ALT/SGPT 26 U/L (13-56); Albumin, Serum 3.8 g/dL (3.2-5.0); Alkaline Phosphatase 60 U/L (45-117); Anion Gap 3 (5-15); BUN 9 mg/dL (7-18); BUN/Creat Ratio 13.8 RATIO (10-20); Calcium,Total 8.6 mg/dL (8.5-10.1); Chloride 110 mmol/L (98-107); Creatinine, Serum 0.65 mg/dL (0.55-1.02); EST Glomerular Filtration Rate 111 mL/min (>60); Est Glom Filt Rate - Afr Amer 134 mL/min (>60); Globulin 3.3 g/dL (2.2-4.2); Glucose 87 mg/dL (74-106); Potassium 4.2 mmol/L (3.5-5.1); Protein, Total 7.1 g/dL (6.4-8.2); Sodium Level 140 mmol/L (136-145)
== END | disposition home or self-care (01) ==
LOC: BIMLAB 10:24
PROVIDERS: PCP Internal Medicine; Visit Provider Internal Medicine
DX: E78.5 Hyperlipidemia, unspecified (principal)
CPT/HCPCS: 36415; 80053

== ENCOUNTER → 2022-12-22 | Outpatient (CLI) | payer MEDICAID, SELFPAY ==
[2022-12-22 16:00] LABS: ALB/GLOB Ratio 1.2 RATIO (0.9-2.4); AST(SGOT) 16 U/L (15-37); Alanine Aminotransfer ALT/SGPT 21 U/L (13-56); Alkaline Phosphatase 59 U/L (45-117); Anion Gap 7 (5-15); BUN 11 mg/dL (7-18); BUN/Creat Ratio 17.6 RATIO (10-20); Calcium,Total 8.9 mg/dL (8.5-10.1); Chloride 107 mmol/L (98-107); Cholesterol 155 mg/dL (200); Creatinine, Serum 0.63 mg/dL (0.55-1.02); EST Glomerular Filtration Rate 116 mL/min (>60); Est Glom Filt Rate - Afr Amer 140 mL/min (>60); Globulin 3.2 g/dL (2.2-4.2); Glucose 82 mg/dL (74-106); High Density Lipoprotein 57 mg/dL; Potassium 4.2 mmol/L (3.5-5.1); Protein, Total 7.2 g/dL (6.4-8.2); Sodium Level 141 mmol/L (136-145); Triglycerides 59 mg/dL; Very Low Density Lipoprotein 12 mg/dL (5-40)
== END | disposition home or self-care (01) ==
LOC: BIMLAB 14:20
PROVIDERS: PCP Internal Medicine; Referring Provider Internal Medicine; Visit Provider Internal Medicine
DX: E78.5 Hyperlipidemia, unspecified (principal)
CPT/HCPCS: 36415; 80053; 80061

== ENCOUNTER → 2024-03-17 | Outpatient (CLI) | payer MEDICAID, SELFPAY ==
[2024-03-17 16:16] LABS: ALB/GLOB Ratio 1.2 RATIO (0.9-2.4); AST(SGOT) 17 U/L (15-37); Alanine Aminotransfer ALT/SGPT 20 U/L (13-56); Albumin, Serum 4.1 g/dL (3.2-5.0); Alkaline Phosphatase 59 U/L (45-117); Anion Gap 5 (5-15); BUN 10 mg/dL (7-18); BUN/Creat Ratio 14.4 RATIO (10-20); Calcium,Total 9.6 mg/dL (8.5-10.1); Chloride 103 mmol/L (98-107); Cholesterol 275 mg/dL (200); Creatinine, Serum 0.69 mg/dL (0.55-1.02); EST Glomerular Filtration Rate 102 mL/min (>60); Est Glom Filt Rate - Afr Amer 123 mL/min (>60); Globulin 3.5 g/dL (2.2-4.2); Glucose 85 mg/dL (74-106); High Density Lipoprotein 76 mg/dL; Potassium 4.5 mmol/L (3.5-5.1); Protein, Total 7.6 g/dL (6.4-8.2); Sodium Level 136 mmol/L (136-145); Triglycerides 93 mg/dL; Very Low Density Lipoprotein 19 mg/dL (5-40)
== END | disposition home or self-care (01) ==
LOC: BIMLAB 11:55
PROVIDERS: PCP Internal Medicine; Referring Provider Internal Medicine; Visit Provider Internal Medicine
DX: E78.5 Hyperlipidemia, unspecified (principal)
CPT/HCPCS: 36415; 80053; 80061

== ENCOUNTER 2024-03-20 10:03 | Day surgery (SDC) | payer MEDICAID, SELFPAY ==
--- NOTE | 2024-03-11 17:28 | PCM.HP.BLA ---
History and Physical Date of Admission: 03/20/24 HPI: The patient is a 33 year old female presenting for pre-operative visit. She is scheduled for tubal sterilization, for sterilization request on 03/20/24. Procedure discussed along with risks, benefits and complications. Other alternatives discussed for management. Consent form signed? Yes. PAST MEDICAL HISTORY PAST MEDICAL HISTORY No date: High cholesterol PAST SURGICAL HISTORY PAST SURGICAL HISTORY No date: NONE CURRENT MEDICATIONS Current Outpatient Medications Medication Sig Dispense Refill ? rosuvastatin (CRESTOR) 10 mg tablet Take 10 mg by mouth once daily. No current facility-administered medications for this visit. ALLERGIES: Gluten and Lactose PERSONAL HISTORY: SOCIAL HISTORY Social History Tobacco Use ? Smoking status: Never ? Smokeless tobacco: Never Vaping Use ? Vaping status: Never Used Substance Use Topics ? Alcohol use: Yes Comment: rare ? Drug use: No FAMILY HISTORY: FAMILY HISTORY FAMILY HISTORY Problem Relation Age of Onset ? Coronary Artery Disease Maternal Grandmother ? other (marfans) Maternal Grandmother ? Coronary Artery Disease Maternal Grandfather ? Diabetes Maternal Grandfather ? Diabetes Paternal Grandmother ? Hypertension Paternal Grandmother ? Cancer Paternal Grandfather stomach REVIEW OF SYMPTOMS: GENERAL: denies fevers or chills ENDOCRINOLOGY: has not been on steroids Cardiology : denies palpitations or chest pain Respiratory: denies SOB or cough Hematology: denies history of prolonged bleeding or easy bruising or VTE Allergy: Denies history of personal or family history of allergy to anesthesia PHYSICAL EXAMINATION: VITALS: Blood pressure 106/58, pulse 88, height 153.7 cm (5' 0.5), weight 54 kg (119 lb), last menstrual period 02/20/2024. GENERAL: The patient is well nourished, well hydrated in no acute distress. , The patient is oriented to time, place, and person. NECK: Supple. No lynphadenopathy, normal thyroid, no thyromegaly. LUNGS: Clear to auscultation bilaterally. no wheezes, rhonchi or rales HEART: Regular rate and rhythm, Normal heart sounds, and No murmurs or gallops IMPRESSION: sterilization request PLAN: The risks/benefits/alternatives and personal involved for the planned tubal sterilization/bilateral salpingectomy were reviewed with the patient. Her questions were answered to her satisfaction and she desires to proceed. Consent was signed. I reviewed with her postop instructions and expectations. I have reviewed and updated past medical and surgical history, medications and allergies Assessment & Plan Assessment/Plan (1) Sterilization:
[2024-03-14 13:25] LABS: Hematocrit 36.6 % (37-47); Hemoglobin 11.2 g/dL (12.0-15.0); Mean Corp Hgb Conc 30.6 g/dL (32-36); Mean Corpuscular Hgb 26.3 pg (27.0-32.0); Mean Corpuscular Volume 85.9 fL (81-99); Mean Platelet Vol. 10.5 fl (6.2-12.0); Platelet Count 253 K/mm3 (150-450); RBC Distribution Width CV 14.6 % (11.6-14.6); Red Blood Count 4.26 M/mm3 (4.2-5.4); White Blood Count 7.6 K/mm3 (4.4-11.0)
[2024-03-14 13:54] LABS: Internal QC Validated? YES +Cl - CLEAR BKGD; Pregnancy, Urine Negative Negative
[2024-03-20] VITALS (8 sets, daily range): BP systolic 105–115; BP diastolic 54–80; PULSE 67–74; RESP 14–18; TEMP 36.6–36.9; O2SAT 100; BMI 22.9
[2024-03-20] MEDS: Lactated Ringers 1,000 ML 15 ML IV (10:30)
[2024-03-20 10:47] LABS: Internal QC Validated? YES +Cl - CLEAR BKGD; Pregnancy, Urine Negative Negative
[2024-03-20] MEDS: Ketorolac 30 MG/ML Syringe IV (11:10)
[2024-03-20] MEDS: Acetaminophen 500 MG Tablet 1000 MG PO (11:10)
--- NOTE | 2024-03-20 12:09 | PRE.ANES_ITS ---
ASA Classification* ASA Classification ASA Classification: 2 Assessment & Plan Anesthesia* Anesthesia Assessment Anesthesia Assessment: Discussed sedation and/or anesthesia options, risks, benefits, and alternatives with patient/parents/legal guardian/POA. Questions invited. The patient/parents/legal guardian/POA seems to understand and agrees to proceed with anesthesia plan. Reviewed the physical assessment, medical history, allergy history and patient home medications list prior to surgery/procedure/anesthetic and documented any changes. Performed airway and anesthesia risk assessments. Anesthesia Type Anesthesia Type: General (see written pre anesthesia record for full assessment) Anesthesia Focused Assessment* Temperature: 98.1 F Pulse Rate: 71 Blood Pressure: 105/57 Respiratory Rate: 18 Pulse Ox: 100 Airway Assessment Mouth opens: >3 cm Mallampati Score: II Focused Labs Anesthesia Preop lab: CBC WBC 7.6 K/mm3 (4.4-11.0) 03/14/24 13:07 RBC 4.26 M/mm3 (4.2-5.4) 03/14/24 13:07 Hgb 11.2 g/dL (12.0-15.0) L 03/14/24 13:07 Hct 36.6 % (37-47) L 03/14/24 13:07 Plt Count 253 K/mm3 (150-450) 03/14/24 13:07 CHEMISTRY Potassium 4.5 mmol/L (3.5-5.1) 03/17/24 11:55 Sodium 136 mmol/L (136-145) 03/17/24 11:55 BUN 10 mg/dL (7-18) 03/17/24 11:55 Creatinine 0.69 mg/dL (0.55-1.02) 03/17/24 11:55 Glucose 85 mg/dL (74-106) 03/17/24 11:55 TSH 1.02 uIU/mL (0.358-3.74) 04/18/19 11:57 COAG Urine Test Negative Negative 03/20/24 10:32 Pre-Assessment Diagnosis/Proposed Procedure Planned Operative Procedure(s): (B) Laparoscopic, bilateral Salpingectomy Anesthesia History Anesthesia History - supervisor cytogenetic laboratory: Anesthesia History - supervisor cytogenetic laboratory Hx Hospitalization No 03/13/24 11:19 Any Problems With Anesthesia No 03/13/24 11:19 Cholinesterase deficiency No 03/13/24 11:19 You/Your Family Experience No 03/13/24 11:19 fever (hyperthermia) with Relationship Recent Exposure to Contagious No 03/20/24 10:56 Disease Does patient have nerve No 03/13/24 11:19 stimulator Patient instructed to have device shut off --Does patient have Pacemaker No 03/20/24 10:56 or ICD? When Was Last Pacemaker Check QUESTION #4 FULL TEXT: You/Your Family Experience fever (hyperthermia) with Anesthesia Last Oral Intake Last Oral intake: Last Oral Intake NPO since 20:45 03/20/24 10:56 Meds taken in AM with sips of No 03/20/24 10:56 water? Meds patient instructed to take am of surgery PONV PONV - supervisor cytogenetic laboratory: PONV - supervisor cytogenetic laboratory Female Yes 03/13/24 11:19 HX of Motion Sickness No 03/13/24 11:19 HX of N/V After Surgery No 03/13/24 11:19 Non-Smoker Yes 03/13/24 11:19 Duration of Surgery greater Yes 03/13/24 11:19 than 60 minutes Number of Risk Factors 3 03/13/24 11:19 PONV Score Moderate Risk 03/13/24 11:19 Height & Weight Height & Weight: Anesthesia: Height & Weight Height 5 ft 03/20/24 10:56 Weight: 53.3 kg 03/20/24 10:56 Body Mass Index (BMI) 22.9 03/20/24 10:56 Respiratory Assessment Respiratory Assessment - supervisor cytogenetic laboratory: Respiratory Tract Infection Hx - supervisor cytogenetic laboratory Hx Respiratory Tract Infection No 03/13/24 11:19 STOP Sleep Apnea STOP Sleep Apnea - supervisor cytogenetic laboratory: STOP Sleep Apnea - supervisor cytogenetic laboratory Hx Hypertension No 03/13/24 11:19 Hx Sleep Apnea No 03/13/24 11:19 CPAP BIPAP Do you snore loudly (louder No 03/13/24 11:19 than talking or can be heard Do you often feel tired/ No 03/13/24 11:19 fatigued/ sleepy during daytime? Has anyone observed you stop No 03/13/24 11:19 breathing during sleep? STOP Results Negative 03/13/24 11:19 QUESTION #5 FULL TEXT : Do you snore loudly (louder than talking or can be heard through closed doors)? 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 Specify any problems Hx of Preganancy in last 3 N/A 03/13/24 11:19 Months Nurse Filling Out Transfusion NBUCHER 03/13/24 11:19 & Questions: Date: 03/13/24 03/13/24 11:19 Time: 11:21 03/13/24 11:19 Patient unable to answer at this time (ie. confused, unrespo /Reproduction History /Reproductive History - supervisor cytogenetic laboratory: /Reproductive Hx- supervisor cytogenetic laboratory Hx Now No 03/13/24 11:19 Gestational Age (in weeks): EDC: Hx Hx Para Hx Section SAB No 03/13/24 11:19 Active Medications Active Medications: Current Medications Generic Name Dose Route Start Last Admin Trade Name Freq PRN Reason Stop Dose Admin Lactated Ringer's 1,000 mls @ 15 mls/hr 03/20/24 10:30 03/20/24 10:30 IV 15 mls/hr .Q48H ZBIGNIEW Administration PFSH Medical History Wears glasses Low iron Celiac disease Former smoker Familial hypercholesteremia Hyperlipidemia Preventative health care Heart murmur Carpal tunnel syndrome History of anemia Seasonal allergies ITP CHILD HISTORY OF CHILD Home Medications ?Medication ?Instructions ?Recorded ?Last Taken ?Type rosuvastatin 10 mg tablet 10 mg PO DAILY #90 tabs 03/18/24 02/28/24 Rx Allergy/AdvReac Type Severity Reaction Status Date / Time gluten Allergy Upset Verified 03/20/24 10:55 Stomach lactose Allergy abd Verified 03/20/24 10:55 cramps,diarrhea Family History Mother Heart disease Hypertension Hyperlipemia Thyroid disorder Grandmother Heart disease Diabetes Hypertension Uncle Heart disease Grandfather Cancer stomach Surgical History History of tonsillectomy Social History Smoking Status: Former smoker Tobacco: How many years used: 6 how long ago did patient quit smokin07/09/2011 alcohol intake: never substance use type: does not use what type of physical activity do you participate in: yoga frequency: 1-2 times per week Review of Systems (Anesthesia) ROS Narrative System reviewed and no additional complaints, except as documented.
--- NOTE | 2024-03-20 12:10 | FALS_PTH ---
PATIENT: EPIFANIO LIGHT [place] [facility] [id number] AGE/SX: 33/F ROOM: RE03/20/[address]: Dr. Brittany Tatum MD : [id number] BED: DIS: 03/20/2024 SPEC #: [id number] RECD: 03/20/24 17:48 STATUS: DENISE REHubert #: [id number] SCARLETT: 03/20/24 12:[address]: Brittany Tatum DEPT: SURGICAL PATHOLOGY RECD BY: Nasima Guo ENTERED: 03/21/24 07:37 SP TYPE: FALL TUBES OTHR DR: Dr. Trent Murray MD Tissues: Fallopian tube Procedures: Surgery Specimen Level II HEADER OPERATION: Laparoscopic, bilateral salpingectomy PRE-OP DIAGNOSIS: Sterilization TISSUE SUBMITTED: Bilateral fallopian tubes MICROSCOPIC DIAGNOSIS Bilateral fallopian tubes, salpingectomy: One fallopian tube with focal mild chronic inflammation. Second fallopian tube with focal mild acute and chronic inflammation and adjacent paratubal cyst. SJ: 03/24/2024 COMMENT Case has been reviewed in consultation with Dr. Mazariegos who concurs with the above diagnosis. IDC:AM MICROSCOPIC DESCRIPTION Slides are reviewed. GROSS DESCRIPTION Received in fixative is one container labeled with the patient's name and designated bilateral fallopian tubes. The specimen consists of bilateral fallopian tubes including fimbrial ends measuring 7.0cm in length and 0.9cm in diameter and measuring 5.5 cm in length and 0.7 cm in diameter. One of the fallopian tubes also shows a cyst filled with clear fluid measuring 0.5cm in greatest dimension. The fallopian tubes are not identified as right or left. Sections reveal unremarkable cut surfaces. Professional Poker Player sections are submitted in two cassettes: 2- second fallopian tube, 1- one fallopian tube and paratubal cyst. / SJ:mr 03/21/2024 TC:3 CPT: 51400 x2
[2024-03-20] MEDS: Bupivacaine Mpf 0.5% 30 ML VIAL (12:34)
--- NOTE | 2024-03-20 13:17 | DCINST_ITS ---
Discharge Instructions Diet Discharge Diet: No restrictions (Increase fluid intake for the next 48 hours.) Activity Additional Activity Instructions:: Ambulate often the next week after surgery. Nothing in the vagina for 5 days. Dressing / Incision Call your doctor if your incision/area has: Continuous Slow Oozing, Sudden Increased Bleeding, Increased Pain/ Swelling, Increased Redness and Foul Smelling Discharge Call your doctor if you observe: Fever of 101 or Higher Follow Up Care Please Follow Up With: Brittany Tatum MD When: You do not need a postop appointment. C all [phone] or send a [employer] message for nonurgent questions Test Results: Test results from this visit will be discussed in further detail at your follow- up appointment, if applicable. Discharge Plan Admission Primary Reason for Your Visit: Tubal sterilization Attending Provider: Brittany Tatum Primary Care Provider: Trent Murray Instructions Print Language: Arabic Discharge Orders/Prescriptions Prescriptions: New ibuprofen 600 mg tablet 600 mg PO Q6H PRN (Reason: Pain) 20 Days Qty: 60 1RF No Action rosuvastatin 10 mg tablet 10 mg PO DAILY Qty: 90 1RF Referrals / Follow Up: Trent Murray MD [Primary Care Provider] - Disposition Disposition (needs filled in before D/C Order can be placed): Home, Self Care
--- NOTE | 2024-03-20 13:17 | OP.PCM_ITS ---
Problems Associated Problem List Diagnoses (1) Sterilization: Report of Operation Date of Procedure: 03/20/24 Pre-Operative Diagnosis: STerilization request Post-Operative Diagnosis: same Surgery/Procedure Performed:: laparoscopic bilateral salpingecotmy Description of Surgical Findings:: normal cervix, uterus, tubes and ovaries Surgeon: Brittany Tatum multimedia specialist: Jan garcia [id number] Type of Anesthesia: General Anesthesiologist: Trey Kelly Special Medications: none Specimen's removed: bilateral fallopian tubes Drains: none Estimated Blood Loss (mL): 10 Fluids Replaced: 1100 Description of Procedure: The patient was taken to the operating room where she was prepped and draped in the dorsolithotomy position. A weighted speculum was placed in the vagina and the anterior lip of the cervix was grasped with a tenaculum. The [] uterine manipulator was placed and the remainder of the instruments were removed from the vagina. Attention was turned to the abdomen. All port sites were infiltrated with 0.5% Marcaine before skin incisions were made. A 5 mm [intraumbilical] incision was made. The anterior abdominal wall was tented up with 2 towel clamps while a 5 mm blade less trocar and sleeve were [directly inserted]. Intraperitoneal placement was confirmed with the laparoscope. The pneumoperitoneum was created and the underlying abdominal contents were intact. The patient was placed in Trendelenburg. Right and left lower quadrant ports were placed under direct visualization lateral to the inferior epigastric vessels. The bowel was swept away and the above findings were noted. The Enseal device was used to clamp seal and transect the antimesenteric portions of the right tube to the cornual insertion of the uterus. The tube was amputated from the uterus and the pedicles were all confirmed to be hemostatic. The same procedure was performed on the contralateral side. The specimens were brought out through a 5 mm port. The pedicles were again examined and found to be hemostatic. The lateral ports were removed under direct visualization and no active bleeding was noted. The pneumoperitoneum was released. The skin incisions were closed with Monocryl suture in a subcuticular fashion and skin glue . The vaginal instruments were removed and the vaginal sweep was completed by me. The entire procedure was performed by me with assistance. All sponge and needle counts were correct and the patient was taken to the recovery room in stable condition. Grafts/Implants Used: none Procedure Start Time: 12:34 Procedure Stop Time: 13:10 Complications none Admit VTE Documentation VTE Present on Admission: No VTE Mechan Device Prophylaxis: SCD's VTE Pharm Prophylaxis ordered?: No
--- NOTE | 2024-03-20 14:50 | PCM.POSTANE2 ---
Anesthesia Postop Eval I Sum Anesthesia Postop Eval I Summary Anesthesia Postop Eval I Summary: Anesthesia Postop Eval I: Assessment Summary Airway patent Spontaneous unlabored respirations Mental status nausea Vomiting Anesthesia Postop Eval I: Fluid Summary Crystalloid volume administer (ml) Colloids volume administered ( ml) Blood Product volume administered (ml) Total IV fluid infused Anesthesia Postop Eval I: Summary Notes Anesthesia Complication Anesthesia Complication Comment: Post-operative progress note Anesthesia: Postop Eval II Evaluation Mental status: Awake and Calm Pain Level: 1 nausea: No Vomiting: No Complications Anesthesia Complication: No
--- NOTE | 2024-03-20 17:02 | PCM.POST.ANE ---
Anesthesia: Postop Eval I Current Vital Signs Temperature: 97.9 F Pulse Rate: 72 Blood Pressure: 107/77 Respiratory Rate: 16 Pulse Ox: 100 Assessment Airway patent: Yes Spontaneous unlabored respirations: Yes nausea: No Vomiting: No Anesthesia Complication: No Fluid Hydration Crystalloid volume administer (ml): 1,000 Total IV fluid infused: 1,000 Progress Note Anesthesia document: Postop Eval 1 completed: Yes
== END 2024-03-20 15:06 | disposition home or self-care (01) ==
LOC: SDC 10:05 → AC 10:06
PROVIDERS: PCP Internal Medicine; Referring Provider Obstetrics & Gynecology; Visit Provider Obstetrics & Gynecology
PROC: (CPT 58661; principal; 2024-03-20 11:55)
DX: Z30.2 Encounter for sterilization (principal); Z87.891 Personal history of nicotine dependence; E78.5 Hyperlipidemia, unspecified; N83.8 Other noninflammatory disorders of ovary, fallopian tube and broad ligament
CPT/HCPCS: 58661; 00840; 36415; 81025; 85027; 88302; J7120; C1760; J2405